=== PATIENT | male | born 1965 | race Caucasian/White ===

== ENCOUNTER 2018-07-13 10:12 | Emergency (ER) | payer OTHER ==
[~2018-07-13] VITALS: Ht 170.2 cm; Wt 74.8 kg
[2018-07-13 10:14] VITALS: BP 128/88
--- NOTE | 2018-07-13 10:26 | NUR ---
PT AMB TO ER BED 7
--- NOTE | 2018-07-13 10:28 | NUR ---
53 Y MALE BIB C/O ABSCESS ON RIGHT BUTT CHEEK X 5 DAYS. ABSCESS IS RED AND SWOLLEN. PT STATES THE SITE IS ITCHING AND HE HAS HAD THE CHILLS AT NIGHT. VSS AT THIS TIME. [id number]. BED IS DOWN, LOCKED, BED RAIL X 1, ERMD NOTIFIED. PMH: NONE
--- NOTE | 2018-07-13 10:46 | NUR ---
Dr. Osorio evaluating patient at bedside.
[2018-07-13] MEDS ORDERED: CLINDAMYCIN 600 MG/4 ML VIAL IM ONE (11:20)
[2018-07-13] MEDS ORDERED: NEOMYCIN/POLYMYXIN/BACITRACIN 0.9 GM/1 PKT TP ONE (11:20)
[2018-07-13] MEDS ORDERED: DEXAMETHASONE 10 MG/ML VIAL IM ONE (11:20)
--- NOTE | 2018-07-13 11:52 | NUR ---
WOUND DRESSING WAS APPLIED BY [facility] EMT
[2018-07-13 12:07] VITALS: BP 131/87
--- NOTE | 2018-07-13 12:07 | NUR ---
Patient discharged with v/s stable. Written and verbal after care instructions given and explained. Patient alert, oriented and verbalized understanding of instructions. Ambulatory with to car. All questions addressed prior to discharge. ID band removed. Patient advised to follow up with PMD. Rx of MOTRIN, CLINDAMYCIN HYDROCHLORIDE given. Patient educated on indication of medication including possible reaction and side effects. Opportunity to ask questions provided and answered.
== END 2018-07-13 12:07 | disposition home or self-care (01) ==
LOC: MED 10:12
DX: L02.31 Cutaneous abscess of buttock (principal)
CPT/HCPCS: 90471; 90715; 96372; 99283; J1100; J3490

== ENCOUNTER 2019-01-17 19:25 | Emergency (ER) | payer OTHER ==
[~2019-01-17] VITALS: Ht 167.6 cm; Wt 77.1 kg
[2019-01-17 19:34] VITALS: BP 130/90
[2019-01-17] MEDS ORDERED: BACITRACIN OINT 500 UNITS/GM PKT TP ONE (21:00)
[2019-01-17 21:09] VITALS: BP 130/90
== END 2019-01-17 21:09 | disposition home or self-care (01) ==
LOC: MED 19:25
DX: S61.210A Laceration without foreign body of right index finger without damage to nail, initial encounter (principal); M19.90 Unspecified osteoarthritis, unspecified site; W26.0XXA Contact with knife, initial encounter; Y93.G3 Activity, cooking and baking; Y92.89 Other specified places as the place of occurrence of the external cause; Y99.8 Other external cause status
CPT/HCPCS: 99283